=== PATIENT | male | born 1960 | race Caucasian/White ===

== ENCOUNTER 2019-03-16 19:10 | Emergency (ER) | payer OTHER ==
[2019-03-17 02:03] LABS: ADD MAN DIFF? NO
[2019-03-17 02:05] LABS: WHITE BLOOD COUNT 6.2 10^3/ul (4.8-10.8)
[2019-03-17 02:05] LABS: BASOPHIL # 0.1 10^3/ul (0.0-0.1); BASOPHILS % 1.4 % (0.0-2.0); EOSINOPHILS # 0.1 10^3/ul (0.0-0.5); EOSINOPHILS % 1.4 % (0.0-7.0); HEMATOCRIT 44.1 % (42.0-52.0); HEMOGLOBIN 14.9 g/dl (14.0-18.0); LYMPHOCYTES # 2.7 10^3/ul (0.8-2.9); LYMPHOCYTES % 43.1 % (15.0-51.0); MEAN CORPUSCULAR HEMOGLOBIN 35.6 pg (29.0-33.0); MEAN CORPUSCULAR HGB CONC 33.8 g/dl (32.0-37.0); MEAN CORPUSCULAR VOLUME 105.5 fl (82.0-101.0); MEAN PLATELET VOLUME 9.6 fl (7.4-10.4); MONOCYTE # 0.7 10^3/ul (0.3-0.9); MONOCYTES % 10.6 % (0.0-11.0); NEUTROPHIL # 2.7 10^3/ul (1.6-7.5); NEUTROPHILS % 42.9 % (39.0-77.0); PLATELET COUNT 336 10^3/UL (140-415); RED BLOOD COUNT 4.18 10^6/ul (4.70-6.10); RED CELL DISTRIBUTION WIDTH 12.8 % (11.5-14.5)
[2019-03-17] MEDS: LEVETIRACETAM 1000 MG (PMX) 100 ML IVPB (02:05)
[2019-03-17] MEDS: SOD CHLORIDE 0.9% 500 ML IV (02:05)
[2019-03-17 02:24] LABS: ALANINE AMINOTRANSFERASE 82 IU/L (13-69); ALBUMIN 4.2 g/dl (3.3-4.9); ALBUMIN/GLOBULIN RATIO 1.23; ALKALINE PHOSPHATASE 109 IU/L (42-121); ANION GAP 11 (5-13); ASPARTATE AMINO TRANSFERASE 136 IU/L (15-46); BILIRUBIN,INDIRECT 0.4 mg/dl (0-1.1); BILIRUBIN,TOTAL 0.4 mg/dl (0.2-1.3); BLOOD UREA NITROGEN 6 mg/dl (7-20); CARBON DIOXIDE 27 mmol/L (21-31); CHLORIDE 110 mmol/L (97-110); CREATININE 0.62 mg/dl (0.61-1.24); Estimated GFR > 60 mL/min (>60); GLUCOSE 105 mg/dl (70-220); POTASSIUM 3.7 mmol/L (3.5-5.1); SODIUM 148 mmol/L (135-144); TOTAL PROTEIN 7.6 g/dl (6.1-8.1)
[2019-03-17 02:28] LABS: CARBAMAZEPINE (TEGRETOL) < 0.0 ug/ml (8.0-12.0); PHENYTOIN (DILANTIN) < 3.0 ug/ml (10.0-20.0); VALPROATE < 10 ug/ml (50-100)
[2019-03-17] MEDS: PHENYTOIN 100 MG CAP PO (03:30)
== END 2019-03-17 06:15 | disposition home or self-care (01) ==
LOC: E/R 19:10
DX: G40.909 Epilepsy, unspecified, not intractable, without status epilepticus (principal); R40.2142 Coma scale, eyes open, spontaneous, at arrival to emergency department; R40.2252 Coma scale, best verbal response, oriented, at arrival to emergency department; R40.2362 Coma scale, best motor response, obeys commands, at arrival to emergency department; F17.210 Nicotine dependence, cigarettes, uncomplicated
CPT/HCPCS: 36415; 80053; 80156; 80164; 80185; 82962; 85025; 96361; 96365; 99284-25

== ENCOUNTER 2019-05-27 13:44 | Emergency (ER) | payer OTHER ==
[2019-05-27 14:02] LABS: ADD MAN DIFF? NO
[2019-05-27 14:05] LABS: WHITE BLOOD COUNT 11.4 10^3/ul (4.8-10.8)
[2019-05-27 14:06] LABS: BASOPHIL # 0.1 10^3/ul (0.0-0.1); BASOPHILS % 0.5 % (0.0-2.0); EOSINOPHILS % 0.4 % (0.0-7.0); HEMATOCRIT 40.7 % (42.0-52.0); HEMOGLOBIN 13.7 g/dl (14.0-18.0); LYMPHOCYTES # 2.9 10^3/ul (0.8-2.9); LYMPHOCYTES % 25.8 % (15.0-51.0); MEAN CORPUSCULAR HEMOGLOBIN 35.5 pg (29.0-33.0); MEAN CORPUSCULAR HGB CONC 33.7 g/dl (32.0-37.0); MEAN CORPUSCULAR VOLUME 105.4 fl (82.0-101.0); MEAN PLATELET VOLUME 9.6 fl (7.4-10.4); MONOCYTE # 1.4 10^3/ul (0.3-0.9); MONOCYTES % 12.4 % (0.0-11.0); NEUTROPHIL # 6.9 10^3/ul (1.6-7.5); NEUTROPHILS % 60.5 % (39.0-77.0); PLATELET COUNT 275 10^3/UL (140-415); RED BLOOD COUNT 3.86 10^6/ul (4.70-6.10); RED CELL DISTRIBUTION WIDTH 12.2 % (11.5-14.5)
[2019-05-27] MEDS: LORAZEPAM 2 MG INJ IV (14:23)
[2019-05-27] MEDS: LIDOCAINE 2%/EPI MPF (SDV) 20 ML VIAL INJ (14:24)
[2019-05-27] MEDS: DIPHTH/TET/ACEL PERTUSS (ADULT) 0.5 ML VIAL IM* (14:24)
[2019-05-27 14:29] LABS: ANION GAP 13 (5-13); BLOOD UREA NITROGEN 9 mg/dl (7-20); CALCIUM 10.4 mg/dl (8.4-10.2); CARBON DIOXIDE 21 mmol/L (21-31); CHLORIDE 107 mmol/L (97-110); CREATININE 0.65 mg/dl (0.61-1.24); Estimated GFR > 60 mL/min (>60); GLUCOSE 95 mg/dl (70-220); PHENYTOIN (DILANTIN) 4.7 ug/ml (10.0-20.0); POTASSIUM 3.8 mmol/L (3.5-5.1); SODIUM 141 mmol/L (135-144)
[2019-05-27] MEDS: FOSPHENYTOIN (PE) 1,000 MG in SOD CHLORIDE 0.9% 80 ML IVPB (16:43)
== END 2019-05-28 10:47 | disposition home or self-care (01) ==
LOC: E/R 05-28 10:47
DX: S01.01XA Laceration without foreign body of scalp, initial encounter (principal); R56.9 Unspecified convulsions; F17.210 Nicotine dependence, cigarettes, uncomplicated; W01.198A Fall on same level from slipping, tripping and stumbling with subsequent striking against other object, initial encounter; Y92.9 Unspecified place or not applicable; Z23 Encounter for immunization
CPT/HCPCS: 12002; 36415; 70450; 80048; 80185; 85025; 90471; 90715; 96374; 96375; 99285-25

== ENCOUNTER 2019-06-21 02:37 | Inpatient (IN) | payer OTHER ==
[2019-06-21] MEDS ORDERED: hydrALAzine 20 MG INJ IV (04:00)
[2019-06-21] MEDS ORDERED: morphine 2 MG INJ IV (04:00)
[2019-06-21] MEDS ORDERED: LORAZEPAM 2 MG INJ IV (04:00)
[2019-06-21] MEDS: ZOLPIDEM 5 MG TAB PO ×2 (04:37→20:38)
[2019-06-21 05:03] LABS: ADD MAN DIFF? NO
[2019-06-21 05:12] LABS: WHITE BLOOD COUNT 9.1 10^3/ul (4.8-10.8)
[2019-06-21 05:12] LABS: BASOPHIL # 0.1 10^3/ul (0.0-0.1); BASOPHILS % 1.1 % (0.0-2.0); EOSINOPHILS # 0.1 10^3/ul (0.0-0.5); EOSINOPHILS % 1.1 % (0.0-7.0); HEMATOCRIT 40.8 % (42.0-52.0); LYMPHOCYTES # 2.8 10^3/ul (0.8-2.9); LYMPHOCYTES % 31.1 % (15.0-51.0); MEAN CORPUSCULAR HEMOGLOBIN 34.3 pg (29.0-33.0); MEAN CORPUSCULAR HGB CONC 31.9 g/dl (32.0-37.0); MEAN CORPUSCULAR VOLUME 107.7 fl (82.0-101.0); MEAN PLATELET VOLUME 9.3 fl (7.4-10.4); MONOCYTE # 0.7 10^3/ul (0.3-0.9); MONOCYTES % 7.6 % (0.0-11.0); NEUTROPHIL # 5.3 10^3/ul (1.6-7.5); NEUTROPHILS % 58.5 % (39.0-77.0); PLATELET COUNT 490 10^3/UL (140-415); RED BLOOD COUNT 3.79 10^6/ul (4.70-6.10); RED CELL DISTRIBUTION WIDTH 13.2 % (11.5-14.5)
[2019-06-21 05:34] LABS: ANION GAP 4 (5-13); BLOOD UREA NITROGEN 7 mg/dl (7-20); CARBON DIOXIDE 29 mmol/L (21-31); CHLORIDE 107 mmol/L (97-110); CREATININE 0.56 mg/dl (0.61-1.24); Estimated GFR > 60 mL/min (>60); GLUCOSE 116 mg/dl (70-220); SODIUM 140 mmol/L (135-144)
[2019-06-21 05:35] LABS: POTASSIUM 3.6 mmol/L (3.5-5.1)
[2019-06-21] MEDS ORDERED: ACETAMINOPHEN 325 MG TAB PO (07:00)
[2019-06-21] MEDS ORDERED: ONDANSETRON 4 MG INJ IV (07:00)
[2019-06-21] MEDS ORDERED: DOCUSATE SODIUM 100 MG CAP PO (07:00)
[2019-06-21] MEDS ORDERED: NACL 0.9% 3 ML SYG IV (07:00)
[2019-06-21] MEDS ORDERED: LEVETIRACETAM 500 MG (PMX) 100 ML IVPB (09:00)
[2019-06-21] MEDS: PHENYTOIN 100 MG CAP PO ×2 (09:03→20:38)
[2019-06-21] MEDS: FOLIC ACID 1 MG TAB PO (09:03)
[2019-06-21] MEDS: LEVETIRACETAM 500 MG TAB PO ×2 (09:04→20:38)
[2019-06-21] MEDS: CHLORDIAZEPOXIDE 25 MG CAP PO ×3 (09:04→21:12)
[2019-06-21] MEDS: POTASSIUM CHLORIDE (SR) 20 MEQ TAB PO (09:05)
[2019-06-21] MEDS: MULTIVITAMINS 10 ML, THIAMINE 100 MG, FOLIC ACID 1 MG in SOD CHLORIDE 0.9% 1,000 ML IVPB (10:32)
[2019-06-21] MEDS: HYDROCODONE/APAP (5/325) TAB PO ×2 (14:45→21:12)
[2019-06-21] MEDS: TAMSULOSIN (SR) 0.4 MG CAP PO (20:38)
[2019-06-22] MEDS: MULTIVITAMINS 10 ML, THIAMINE 100 MG, FOLIC ACID 1 MG in SOD CHLORIDE 0.9% 1,000 ML IVPB (01:33)
[2019-06-22] MEDS: FOLIC ACID 1 MG TAB PO (09:03)
[2019-06-22] MEDS: CHLORDIAZEPOXIDE 25 MG CAP PO ×3 (09:03→20:14)
[2019-06-22] MEDS: POTASSIUM CHLORIDE (SR) 20 MEQ TAB PO (09:04)
[2019-06-22] MEDS: PHENYTOIN 100 MG CAP PO ×2 (09:04→20:14)
[2019-06-22] MEDS: LEVETIRACETAM 500 MG TAB PO (09:04)
[2019-06-22 09:56] LABS: ADD UMIC NO; UR ASCORBIC ACID NEGATIVE (NEGATIVE); UR BILIRUBIN (Dip) NEGATIVE (NEGATIVE); UR BLOOD (Dip) NEGATIVE (NEGATIVE); UR CLARITY CLEAR (CLEAR); UR COLOR YELLOW (YELLOW); UR GLUCOSE (Dip) NEGATIVE (NEGATIVE); UR KETONES (Dip) NEGATIVE (NEGATIVE); UR LEUKOCYTE ESTERASE (Dip) NEGATIVE Leu/ul (NEGATIVE); UR NITRITE (Dip) NEGATIVE (NEGATIVE); UR SPECIFIC GRAVITY (Dip) 1.008 (1.003-1.030); UR TOTAL PROTEIN (Dip) NEGATIVE (NEGATIVE); UR UROBILINOGEN (Dip) NEGATIVE (NEGATIVE)
[2019-06-22 10:37] LABS: AMPHETAMINE/METHAMPHETAMINE NEGATIVE (NEGATIVE); BARBITURATES NEGATIVE (NEGATIVE); BENZODIAZEPINES POSITIVE (NEGATIVE); CANNABINOIDS NEGATIVE (NEGATIVE); COCAINE NEGATIVE (NEGATIVE); OPIATES POSITIVE (NEGATIVE)
[2019-06-22 12:41] LABS: PHOSPHORUS 3.8 mg/dl (2.5-4.9)
[2019-06-22 12:41] LABS: MAGNESIUM 1.7 mg/dl (1.7-2.5); PHENYTOIN (DILANTIN) 7.3 ug/ml (10.0-20.0)
[2019-06-22] MEDS: HYDROCODONE/APAP (5/325) TAB PO ×2 (12:58→20:18)
[2019-06-22] MEDS: LEVETIRACETAM 750 MG TAB PO (20:14)
[2019-06-22] MEDS: TAMSULOSIN (SR) 0.4 MG CAP PO (20:14)
[2019-06-22] MEDS: ZOLPIDEM 5 MG TAB PO (20:18)
[2019-06-23 05:35] LABS: ANION GAP 5 (5-13); BLOOD UREA NITROGEN 10 mg/dl (7-20); CARBON DIOXIDE 26 mmol/L (21-31); CHLORIDE 106 mmol/L (97-110); CREATININE 0.58 mg/dl (0.61-1.24); Estimated GFR > 60 mL/min (>60); GLUCOSE 104 mg/dl (70-220); MAGNESIUM 1.7 mg/dl (1.7-2.5); POTASSIUM 4.5 mmol/L (3.5-5.1); SODIUM 137 mmol/L (135-144)
[2019-06-23] MEDS: FOLIC ACID 1 MG TAB PO (08:40)
[2019-06-23] MEDS: PHENYTOIN 100 MG CAP PO ×2 (08:40→21:33)
[2019-06-23] MEDS: LEVETIRACETAM 750 MG TAB PO ×2 (08:40→21:33)
[2019-06-23] MEDS: POTASSIUM CHLORIDE (SR) 20 MEQ TAB PO (08:40)
[2019-06-23] MEDS: HYDROCODONE/APAP (5/325) TAB PO ×3 (08:45→21:33)
[2019-06-23] MEDS: CHLORDIAZEPOXIDE 25 MG CAP PO ×3 (08:45→21:33)
[2019-06-23] MEDS: MULTIVITAMINS 10 ML, THIAMINE 100 MG, FOLIC ACID 1 MG in SOD CHLORIDE 0.9% 1,000 ML IVPB (08:47)
[2019-06-23] MEDS: TAMSULOSIN (SR) 0.4 MG CAP PO (21:33)
[2019-06-23] MEDS: ZOLPIDEM 5 MG TAB PO (22:37)
[2019-06-24] MEDS: LEVETIRACETAM 750 MG TAB PO ×2 (08:36→20:49)
[2019-06-24] MEDS: PHENYTOIN 100 MG CAP PO ×2 (08:36→20:50)
[2019-06-24] MEDS: POTASSIUM CHLORIDE (SR) 20 MEQ TAB PO (08:36)
[2019-06-24] MEDS: FOLIC ACID 1 MG TAB PO (08:36)
[2019-06-24] MEDS: MULTIVITAMINS 10 ML, THIAMINE 100 MG, FOLIC ACID 1 MG in SOD CHLORIDE 0.9% 1,000 ML IVPB (08:37)
[2019-06-24] MEDS: CHLORDIAZEPOXIDE 25 MG CAP PO ×3 (08:40→20:49)
[2019-06-24] MEDS: HYDROCODONE/APAP (5/325) TAB PO (16:27)
[2019-06-24] MEDS: TAMSULOSIN (SR) 0.4 MG CAP PO (20:49)
[2019-06-24] MEDS: ZOLPIDEM 5 MG TAB PO (21:38)
[2019-06-25] MEDS: HYDROCODONE/APAP (5/325) TAB PO (02:20)
[2019-06-25] MEDS: FOLIC ACID 1 MG TAB PO (08:52)
[2019-06-25] MEDS: LEVETIRACETAM 750 MG TAB PO (08:52)
[2019-06-25] MEDS: PHENYTOIN 100 MG CAP PO (08:52)
[2019-06-25] MEDS: POTASSIUM CHLORIDE (SR) 20 MEQ TAB PO (08:53)
[2019-06-25] MEDS: CHLORDIAZEPOXIDE 25 MG CAP PO (08:57)
== END 2019-06-25 11:19 | disposition home or self-care (01) | DRG 897 ==
LOC: MS1 02:37
DX: F10.239 Alcohol dependence with withdrawal, unspecified (principal); E44.0 Moderate protein-calorie malnutrition; Z68.1 Body mass index [BMI] 19.9 or less, adult; G40.89 Other seizures; D64.9 Anemia, unspecified; Z59.0 Homelessness; S43.004A Unspecified dislocation of right shoulder joint, initial encounter
CPT/HCPCS: 80048; 80185; 80307; 81003; 83735; 84100; 85025; 97110; 97116; 97161; 97530